=== PATIENT | male | born 1995 | race Caucasian/White ===

== ENCOUNTER 2016-07-19 18:41 | Emergency (ER) | payer SELFPAY ==
[~2016-07-19] VITALS: Ht 167.6 cm; Wt 71.0 kg
[2016-07-19 19:08] VITALS: BP 120/81
== END 2016-07-19 22:50 | disposition left against medical advice (07) ==
LOC: ER 18:41
DX: R10.9 Unspecified abdominal pain (principal); Z53.21 Procedure and treatment not carried out due to patient leaving prior to being seen by health care provider